=== PATIENT | female | born 1965 | race Caucasian/White ===

== ENCOUNTER → 2024-02-18 13:48 | Outpatient (REF) | payer BC, SELFPAY | LOC: WDC 13:48 | PROVIDERS: ATTENDING PHYSICIAN Obstetrics & Gynecology Gynecology; FAMILY PHYSICIAN Nurse Practitioner Family | DX: Z78.0 Asymptomatic menopausal state (principal); Z12.31 Encounter for screening mammogram for malignant neoplasm of breast | CPT/HCPCS: 77063; 77067; 77080 ==

== ENCOUNTER → 2024-03-10 09:23 | Outpatient (REF) | payer SELFPAY | LOC: HWRAD 09:23 | PROVIDERS: ATTENDING PHYSICIAN Nurse Practitioner Family | DX: E78.00 Pure hypercholesterolemia, unspecified (principal) | CPT/HCPCS: 75571 ==

== ENCOUNTER → 2024-04-08 19:29 | Outpatient (REF) | payer BC, SELFPAY | LOC: MRI 19:29 | PROVIDERS: ATTENDING PHYSICIAN Nurse Practitioner Family | DX: K76.9 Liver disease, unspecified (principal) | CPT/HCPCS: 74183; A9575 ==

== ENCOUNTER → 2024-06-07 08:45 | Outpatient (REF) | payer BC, SELFPAY | LOC: WDC 08:45 | PROVIDERS: ATTENDING PHYSICIAN Obstetrics & Gynecology Gynecology; FAMILY PHYSICIAN Nurse Practitioner Family | DX: R92.2 Inconclusive mammogram (principal); Z80.3 Family history of malignant neoplasm of breast | CPT/HCPCS: 76641 ==

== ENCOUNTER 2025-01-27 06:21 | Day surgery (SDC) | payer BC, SELFPAY | END 2025-01-27 15:20 | disposition home or self-care (01) | LOC: GI 06:21 | PROVIDERS: ATTENDING PHYSICIAN Specialist | DX: Z12.11 Encounter for screening for malignant neoplasm of colon (principal); R19.5 Other fecal abnormalities; K63.89 Other specified diseases of intestine; D12.1 Benign neoplasm of appendix; D12.2 Benign neoplasm of ascending colon; D36.15 Benign neoplasm of peripheral nerves and autonomic nervous system of abdomen; Q43.8 Other specified congenital malformations of intestine | CPT/HCPCS: 45380; 88305 ==

== ENCOUNTER → 2025-01-31 12:30 | Outpatient (REF) | payer BC, SELFPAY | LOC: RAD 12:30 | PROVIDERS: ATTENDING PHYSICIAN Specialist; FAMILY PHYSICIAN Family Medicine | DX: K38.8 Other specified diseases of appendix (principal); R19.5 Other fecal abnormalities | CPT/HCPCS: 74177; Q9967 ==

== ENCOUNTER → 2025-02-22 06:50 | Outpatient (REF) | payer BC, SELFPAY | LOC: WDC 06:50 | PROVIDERS: ATTENDING PHYSICIAN Obstetrics & Gynecology Gynecology; FAMILY PHYSICIAN Nurse Practitioner Family | DX: Z12.31 Encounter for screening mammogram for malignant neoplasm of breast (principal); Z80.3 Family history of malignant neoplasm of breast | CPT/HCPCS: 77063; 77067 ==

== ENCOUNTER 2025-03-28 08:27 | Day surgery (SDC) | payer BC, SELFPAY ==
[2025-03-14 09:24] LABS: Hematocrit 40.7 % (37.0-47.0); Hemoglobin 13.4 g/dL (12.0-16.0); Mean Corp Hgb Conc. 32.9 g/dL (33.0-37.0); Mean Corpuscular Volume 92.7 fL (81.0-99.0); Platelet Count 270 10^3/uL (130-400); Red Cell Dist. Width 12.6 % (11.5-14.5)
[2025-03-14 09:56] LABS: Blood Urea Nitrogen 22 mg/dl (7-17); Calcium 9.3 mg/dl (8.4-10.2); Carbon Dioxide 30 mmol/L (22-30); Chloride 103 mmol/L (98-107); Glucose 89 mg/dl (70-99); Potassium 5.1 mmol/L (3.5-5.1); eGFR > 60.00
[2025-03-14 10:02] LABS: Sodium 139 mmol/L (135-145)
[2025-03-14 13:49] VITALS: BMI 26.9
[2025-03-14 19:33] LABS: CEA 1.38 ng/ml
[2025-03-28] VITALS (9 sets, daily range): BP systolic 110–130; BP diastolic 56–78; BMI 26.9
--- NOTE | 2025-03-28 09:01 | HP.FOC2 ---
Focused History & Physical
Chief Complaint
HPI:
Chief Complaint: Submucosal mass within the cecum at the base of the appendix
HPI / Indication for Planned Procedure: Patient is a 59-year-old female who recently underwent screening colonoscopy this past January. Findings were notable for a 15 mm submucosal nodule mildly ulcerated at the appendiceal orifice. Appendix biopsy
showed focal hyperplastic changes without dysplasia. Subsequent CT imaging was completed identifying a 1.7 cm round soft tissue mass comparing to have extrinsic compression onto the adjacent cecum at the base of the appendix. She presents today
for definitive resection.
Relevant Past Medical History: Other (Hypercholesterolemia, osteopenia)
Relevant Social History: Negative
Relevant Family History: Negative
Relevant Past Surgical History: Positive for (Right ovarian cystectomy, breast reduction, D&C)
Review of Systems
Review of Pertinent Systems: All Systems Negative
Medication
See Medication form for detailed medications: Yes
Medication List (including Herbals & OTC):
Collagen Peptide 20 g PO DAILY 03/21/25
L-Theanine 200 mg PO HS 03/21/25
Zquill Pure Z 1 tab PO HS 03/21/25
calcium 400 mg (carbonate)-magnesium 167 mg (oxide)-D3 133 unit tablet (Calcium Magnesium plus D) 2 tab PO DAILY 03/21/25
magnesium glycinate 200 mg PO HS 03/21/25
omega 3 650 mg-dha 240 mg-epa 360 mg-fish oil 1,000 mg capsule del rel 1 cap PO DAILY 03/21/25
rosuvastatin 5 mg tablet (Crestor) 5 mg PO MOWEFR 03/21/25
Medications Reviewed: Yes
Allergies and Reactions
Patient has Allergies: No
Noted Allergies and Reactions:
Allergy/AdvReac Type Severity Reaction Status Date / Time
No Known Allergies Allergy Verified 03/28/25 08:59
Pertinent Physical Exam
All Other Systems: Negative
Head/Neck: Normal
Lungs: Normal
Heart: Normal
Abdomen: Normal
Extremities: Normal
Neurological: Normal
Diagnosis / Assessment
59-year-old female with recently discovered submucosal soft tissue mass at the base of the appendix/cecum presenting today for resection
Plan / Procedure
Laparoscopic assisted appendectomy with anticipated partial cecectomy
Anesthesia/Sedation to be done by Anesthesia Provider: Yes
[2025-03-28] MEDS: TYLENOL 1000 MG PO (09:04)
[2025-03-28] MEDS: NORMOSOL-R/PLASMALYTE-A 1000 IV (09:04)
--- NOTE | 2025-03-28 09:04 | W.SUR.PREOP ---
Pre-Operative Surgical Note
-
I have examined this patient prior to the performance of the scheduled procedure.
The patient's condition is unchanged from the time of the current History and
Physical and the patient is able to undergo the scheduled procedure.
--- NOTE | 2025-03-28 10:39 | W.IMMPOSTOP ---
Addendum entered and electronically signed by Brian Capellan MD 03/28/25 10:49:
#[id number]
Original Note:
Surgical Immed Post Op Note
-
Primary Surgeon: Brian Capellan MD
Assisting Surgeon: Samanta Shoemaker PA-c
Pre-op Diagnosis: Submucosal mass of the cecum
Post-op Diagnosis: same
Procedure Performed: Laparoscopic appendectomy with partial cecectomy (preservation of IC valve)
Anesthesia Type: GETA + 0.25% Marcaine
Specimen / Cultures: appendix with cuff of cecum
Estimated Blood Loss: 6mL
Complications: none immediate
Operative Findings: ~2cm palpable and visible submucosal mass at the base of the appendix/cecum. appendectomy with partial cecectomy and preservation of ileocecal valve for resection.
The assistance of Samanta Shoemaker PA-c was required due to the complexity of the procedure. During the procedure Samanta Shoemaker PA-c assisted with managing the laparoscope for visualization and closure of the skin incision sites.
== END 2025-03-28 12:23 | disposition home or self-care (01) ==
LOC: SDS 08:27
PROVIDERS: ATTENDING PHYSICIAN Surgery; FAMILY PHYSICIAN Family Medicine
DX: K63.89 Other specified diseases of intestine (principal); Z86.0100 Personal history of colon polyps, unspecified; K57.30 Diverticulosis of large intestine without perforation or abscess without bleeding
CPT/HCPCS: 44970; 36415; 80048; 82378; 85027; 86316; 88304; 93005; J1335